=== PATIENT | female | born 1980 | race Caucasian/White ===

== ENCOUNTER 2018-12-07 06:10 | Emergency (ER) | payer OTHER ==
[~2018-12-07] VITALS: Ht 167.6 cm; Wt 129.7 kg
[~2018-12-07 06:10] MED LIST: CRUTCH1 EACH MC; IBUPROFEN800 MG PO
--- NOTE | 2018-12-07 23:18 | EKG ---
[facility] [address] [place] [address] Signed Sinus tachycardia Otherwise normal ECG When compared with ECG of 17-MAR-2018 09:20, Vent. rate has increased BY 43 BPM Confirmed by USAMA SHAIKH MD ([id number]) on 12/07/2018 11:18:35 PM Electronically Signed By: USAMA SHAIKH MD 12/07/18 2318 PATIENT NAME: RICHCHU ANNE Electrocardiogram DATE OF : 84 PHYSICIAN: USAMA SHAIKH MD REPORT #: [id number] REPORT IS CONFIDENTIAL AND NOT TO BE RELEASED WITHOUT AUTHORIZATION
== END 2018-12-07 08:03 | disposition home or self-care (01) ==
LOC: ED 06:10
DX: R07.89 Other chest pain (principal); F17.200 Nicotine dependence, unspecified, uncomplicated; Z88.5 Allergy status to narcotic agent; Z79.899 Other long term (current) drug therapy
CPT/HCPCS: 71045; 80053; 84484; 85025; 85379; 93005; 93010; 99285-25

== ENCOUNTER 2019-05-03 06:26 | Emergency (ER) | payer OTHER ==
[~2019-05-03] VITALS: Ht 167.6 cm; Wt 131.5 kg
[2019-05-03] MEDS ORDERED: FLAGYL250 MG PO (09:50)
[2019-05-03] MEDS ORDERED: CIPRO500 MG PO (09:50)
== END 2019-05-03 10:00 | disposition home or self-care (01) ==
LOC: ED 06:26
DX: K57.32 Diverticulitis of large intestine without perforation or abscess without bleeding (principal); F17.200 Nicotine dependence, unspecified, uncomplicated; Z88.5 Allergy status to narcotic agent
CPT/HCPCS: 74176; 80053; 81001; 83690; 84703; 85025; 96374; 99284-25; J2405

== ENCOUNTER 2020-01-10 06:20 | Day surgery (SDC) | payer OTHER ==
[~2020-01-10] VITALS: Ht 167.6 cm; Wt 129.3 kg
--- NOTE | ~2020-01-10 | OR ---
[facility] [address] [facility] [place], [place] [address] Draft DATE OF OPERATION: 01/10/2020 SURGEON: Frantz Noel MD PREOPERATIVE DIAGNOSIS: Carpal tunnel syndrome, left. POSTOPERATIVE DIAGNOSIS: Carpal tunnel syndrome, left. PROCEDURE: Carpal tunnel release, left. ANESTHESIA: Sea block with some sedation. SPECIMENS AND COMPLICATIONS: There were no specimens or complications. TOURNIQUET TIME: About 21 minutes. WHAT WAS DONE: The patient was taken to the operating room. After Keenes block was administered and she was gently sedated, the left upper extremity was positioned, prepped and draped in a routine sterile fashion. A volar incision was made at the distal wrist flexion crease extending distally for about 2 cm. Skin was divided sharply. Subcutaneous tissue was bluntly spread. The transverse volar carpal ligament was identified and released with the tip of a #15 blade. We then placed the Ragnell under the distal skin flap, elevated it, and released the rest of the transverse volar carpal ligament. We then put the Ragnell under the proximal skin flap and released the distal 3 cm of the antebrachial fascia. This gave us a complete release of the median nerve, which was well visualized and intact. The wound was gently irrigated, closed in standard fashion. A sterile dressing was applied. The patient was awakened, taken to the recovery room where she arrived in stable condition. Counts were correct and antibiotic protocols were followed. PATIENT NAME: CHU VILLANUEVA OPERATIVE REPORT DATE OF : 84 REPORT #: [id number] PHYSICIAN: FRANTZ NOEL MD PCP: LISA MARRERO MD REPORT IS CONFIDENTIAL AND NOT TO BE RELEASED WITHOUT AUTHORIZATION [address] [place], [place] [address] Draft Frantz Noel MD WFB/MODL /[id number] Copies: ~ PATIENT NAME: CHU VILLANUEVA OPERATIVE REPORT DATE OF : 84 REPORT #: [id number] PHYSICIAN: FRANTZ NOEL MD PCP: LISA MARRERO MD REPORT IS CONFIDENTIAL AND NOT TO BE RELEASED WITHOUT AUTHORIZATION
[~2020-01-10 06:20] MED LIST changes: +ALPHA LIPOIC A200 MG PO; +CIPRO500 MG PO; +CURCUMIN1 GM MISC; +CYMBALTA60 MG PO; +FLAGYL250 MG PO; +GARLIC1 EAC1 PO; +VITAMIN B-1000.4 MG PO; +VITAMIN C500 M4 PO; +VITAMIN D3125 MC2 PO; +ZINC50 MG PO
--- NOTE | 2020-01-10 09:39 | NUR ---
01/10/20 0939 [place] [facility] 0891 PT ARRIVED IN PACU WIDE AWAKE WITH NO C/O'S. L HAND ELEVATED ON PILLOWS AND ICE PLACED. 909 COUGHING. SIPPING ON WATER. 919 DC INSTRUCTIONS GIVEN. SITTING AT SIDE OF BED GETTING DRESSED. RN STAND BY ASSIST. 929 LEFT VIA W/C.
--- NOTE | 2020-01-10 09:59 | NUR ---
PT ALERT, ORIENTED AND SUPPORTED BY A FRIEND MICHAEL. PT SEEMS PREPARED, IS REALLY LOOKING FORWARD TO GETTING THE FULL USE OF HER HAND BACK. HAD GOOD VISIT WITH PT, REQUESTED PRAYER. WILL FOLLOW NEEDED
== END 2020-01-10 09:30 | disposition home or self-care (01) ==
LOC: OPS 06:20 → DS 06:20 → OPS 09:30 → DS 09:30
PROVIDERS: Orthopaedic Surgery
PROC: 01N50ZZ Release Median Nerve, Open Approach (ICD-10-PCS; principal; 2020-01-10 09:30)
DX: G56.03 Carpal tunnel syndrome, bilateral upper limbs (principal); G43.909 Migraine, unspecified, not intractable, without status migrainosus; M79.7 Fibromyalgia; F32.9 Major depressive disorder, single episode, unspecified; R05 Cough; F17.210 Nicotine dependence, cigarettes, uncomplicated; R53.83 Other fatigue; Z88.5 Allergy status to narcotic agent; Z79.899 Other long term (current) drug therapy
CPT/HCPCS: J0690; J1885; J2250; J2704; J7121

== ENCOUNTER → 2021-05-07 | Emergency (ER) | payer OTHER ==
[~2021-05-07] VITALS: Ht 167.6 cm; Wt 129.3 kg
[~2021-05-07] MED LIST changes: +FLAGYL500 MG PO; +HYDROCODON-ACE1 EA10 PO; +ZYRTEC10 MG PO
== END ==
LOC: ED 07:45
DX: K57.32 Diverticulitis of large intestine without perforation or abscess without bleeding (principal); F17.200 Nicotine dependence, unspecified, uncomplicated; Z88.5 Allergy status to narcotic agent; Z79.899 Other long term (current) drug therapy
CPT/HCPCS: 74177; 80053; 81001; 83690; 84703; 85025; 96375; 99284-25; J1170; J2405; Q9967